=== PATIENT | female | born 1985 | race Caucasian/White ===

== ENCOUNTER 2017-05-18 07:45 | Inpatient (IN) | payer OTHER ==
[~2017-05-18] VITALS: Ht 162.6 cm; Wt 121.8 kg
[2017-05-18] VITALS (26 sets, daily range): BP systolic 110–184; BP diastolic 58–90
[~2017-05-18 07:45] MED LIST: ENDOCET 5-3251 EACH PO; IBUPROFEN800 MG PO; Motrin PO; PRENATAL TABLE1 EAC3 PO; PRENATAL VITAM1 EAC3 PO; Percocet 5/325,Endoc PO
[2017-05-18 09:55] LABS: BASOPHIL (%) 0.3 % (0-1); EOSINOPHIL (%) 0.7 % (0-5); EOSINOPHIL COUNT 0.1 K/uL (0-0.3); HEMATOCRIT 40.9 % (36.0-46.0); HEMOGLOBIN 13.6 G/DL (11.9-15.5); IMMATURE GRANULOCYTE (%) 0.4 % (0.0-0.7); LYMPHOCYTE (%) 4.9 % (15-42); LYMPHOCYTE COUNT 0.5 K/uL (1.0-2.8); MCH 27.4 PG (29.0-34.0); MCHC 33.3 G/DL (30.0-36.0); MCV 82.5 FL (83-99); MONOCYTE COUNT 0.9 K/uL (0-0.8); NEUTROPHIL (%) 84.7 % (45-76); NEUTROPHIL COUNT 8.7 K/uL (1.8-6.4); PLATELET COUNT 222 K/uL (156-360); RBC DIS.WIDTH-SD 41.9 % (39-53); RED BLOOD COUNT 4.96 M/uL (3.80-5.20); WHITE BLOOD COUNT 10.3 K/uL (4.1-10.2)
[2017-05-18] MEDS ORDERED: IBUPROFEN800 MG PO (21:17)
[2017-05-19 05:56] LABS: BASOPHIL (%) 0.3 % (0-1); EOSINOPHIL (%) 0.5 % (0-5); HEMATOCRIT 35.1 % (36.0-46.0); IMMATURE GRANULOCYTE (%) 0.4 % (0.0-0.7); LYMPHOCYTE (%) 15.3 % (15-42); LYMPHOCYTE COUNT 1.2 K/uL (1.0-2.8); MCH 27.6 PG (29.0-34.0); MCV 83.6 FL (83-99); MONOCYTE (%) 11.7 % (3-12); MONOCYTE COUNT 0.9 K/uL (0-0.8); NEUTROPHIL (%) 71.8 % (45-76); NEUTROPHIL COUNT 5.5 K/uL (1.8-6.4); PLATELET COUNT 164 K/uL (156-360); RBC DIS.WIDTH-CV 14.4 % (11.8-14.6); RBC DIS.WIDTH-SD 43.5 % (39-53); WHITE BLOOD COUNT 7.6 K/uL (4.1-10.2)
[2017-05-19 06:01] LABS: HEMOGLOBIN 11.6 G/DL (11.9-15.5)
[2017-05-19 07:18] VITALS: BP 126/60
[2017-05-19 14:52] VITALS: BP 130/69
[2017-05-19 23:20] VITALS: BP 127/73
== END 2017-05-20 14:23 | disposition home or self-care (01) | DRG 775 ==
LOC: LDRP-OP 07:45 → 2WEST 07:46 → LDRP-OP 09:02 → 2WEST 19:50 → LDRP-OP 06-10 01:49
PROVIDERS: Midwife
DX: O70.0 First degree perineal laceration during delivery (principal); O77.0 Labor and delivery complicated by meconium in amniotic fluid; O48.0 Post-term pregnancy; O99.62 Diseases of the digestive system complicating childbirth; K21.9 Gastro-esophageal reflux disease without esophagitis; O99.344 Other mental disorders complicating childbirth; F32.9 Major depressive disorder, single episode, unspecified; F41.9 Anxiety disorder, unspecified; O99.214 Obesity complicating childbirth; E66.9 Obesity, unspecified; Z68.41 Body mass index [BMI] 40.0-44.9, adult; Z86.32 Personal history of gestational diabetes; Z3A.41 41 weeks gestation of pregnancy; Z37.0 Single live birth
CPT/HCPCS: 85025; C1755; J3010; J7120; S0020